=== PATIENT | female | born 1960 | race Caucasian/White ===

== ENCOUNTER → 2021-03-16 00:21 | Outpatient (CLI) | payer BC, SELFPAY ==
[2021-03-16 18:40] LABS: SARS-CoV-2 RNA PCR Negative
== END ==
PROVIDERS: PCP Family Medicine; Visit Provider Orthopaedic Surgery
DX: Z01.812 Encounter for preprocedural laboratory examination (principal); Z20.822 Contact with and (suspected) exposure to COVID-19
CPT/HCPCS: C9803; U0003; U0005

== ENCOUNTER 2021-03-19 01:36 | Day surgery (SDC) | payer BC, SELFPAY ==
[2021-03-11 16:16] VITALS: BMI 27.8
[2021-03-19] VITALS (12 sets, daily range): BP systolic 114–164; BP diastolic 74–92; PULSE 61–72; RESP 12–16; TEMP 36.5–36.9; O2SAT 94–100
--- NOTE | 2021-03-19 07:39 | WPDANESEPPF ---
Anes - Initial Pre Proc Eval Procedure: Operation Date: 03/19/21 10:30 Proposed Procedures p Right Arthroscopic Rotator Cuff Repair, with Biceps Tenodesis, Subacromial Decompression - Sundeep Montano MD Date/Time: 03/19/21 07:39 Surgeon: Sundeep Montano MD Pre Op Diagnosis: right complete rotator cuff tear Patient Data Age: 60 Gender: F Height: 1.68 m Weight: 78.2 kg Allergies Allergy/AdvReac Type Severity Reaction Status Date / Time PINK EYE MEDICATION Allergy Severe Swelling Uncoded 03/19/21 09:15 Home Medications Medication Instructions Recorded Confirmed Type cyclobenzaprine 10 mg tablet 10 mg PO HS 01/15/21 03/11/21 History folic acid 1 mg tablet 1 mg PO DAILY 01/15/21 03/11/21 History levothyroxine 50 mcg capsule 50 mcg PO DAILY 01/15/21 03/11/21 History methotrexate sodium 2.5 mg tablet 2.5 mg PO WEEKLY 01/15/21 03/11/21 History ibuprofen 200 mg PO Q6H PRN 03/11/21 03/11/21 History naproxen 250 mg PO QAM 03/11/21 03/11/21 History rosuvastatin 10 mg PO HS 03/11/21 03/11/21 History Patient hx anesthesia problems: none Family hx anesthesia problems: none [facility] Past Medical History Medical History (Updated 03/19/21 @ 09:02 by Moise Monroe DO) Aftercare following surgery Hypercholesterolemia Hypothyroidism Palpitations Surgical History Surgical History History of carpal tunnel release History of cholecystectomy History of foot surgery History of knee replacement Family History Family History Grandparent Hypertension Grandparent CHF (congestive heart failure) Other Family history of malignant neoplasm of breast in first degree relative Social History Social History Smoking status: Never smoker Alcohol intake: never Living arrangements: with family Spiritual care concerns: No Anes - Eval Final PreProcedure Day of Procedure 03/19/21 07:39 Patient weight: overweight Heart: regular rate and rhythm Lungs: clear to auscultation and normal air movement Airway: Mallampati scale class II Neurological: alert and oriented Last oral intake: >/= 8 hours ASA classification: II Emergent: no Anesthetic plan: proceed Anesthesia type and monitoring: general ETT and standard monitoring Informed Consent: The patient's anesthetic plan and its attendant risks and benefits were discussed with the patient/family/POA. Questions were solicited and answers provided to the satisfaction of the patient/family/POA.
--- NOTE | 2021-03-19 07:42 | WPDANESPNB ---
Anes - Peripheral Nerve Block Date/Time: 03/19/21 07:42 I have discussed with the patient/family/POA the placement of a peripheral nerve block for post-operative pain management, including associated risks, benefits, complications, and side effects. Alternative methods of post-operative analgesia were detailed. Questions were solicited and answers provided to the satisfaction of the patient/family/POA. Time-Out: A pre-procedural Time-Out was completed immediately before starting the procedure and confirmed: Patient Identification, Site, Procedure, Patient Position and the Availability of Requisite Equipment. Clinical Indications: Acute post-operative pain management requested by the operative surgeon. Nerve Block Insertion Note Anes-nerve block: interscalene right Patient position: supine Skin prep: chlorhexidine Needle: 22 gauge, stimulating, insulated echogenic needle. Needle length: 50 mm Technique: ultrasound Injectate: bupivacaine 0.5% with epi 5 mcg/ml (30cc- no epi) Observations: tolerated well Complications: none Procedure start time:: 954 Procedure end time:: 957
[2021-03-19] MEDS: ACETAMINOPHEN 500 MG TABLET 1000 MG PO (09:26)
[2021-03-19] MEDS: LACTATED RINGERS 1,000 ML 30 ML IV CONT ×2 (09:38→13:47)
[2021-03-19] MEDS: KETOROLAC 15 MG/ML VIAL (*BKC) IV PUSH (09:40)
--- NOTE | 2021-03-19 10:06 | WPDHPUPDATE1 ---
History and Physical Update Update Date/Time: 03/19/21 10:06 History and Physical has been reviewed, including an updated exam of the patient. There are NO changes in the patient's condition. Risks, benefits, and alternatives have been discussed and questions answered. Patient agrees to proceed with procedure.
--- NOTE | 2021-03-19 10:07 | PM.HPGS ---
History of Present Illness History of Present Illness Consent: Risks, benefits, and alternatives have been discussed and questions answered. Patient agrees to proceed with procedure. Chief complaint: right complete rotator cuff tear Narrative: Debra Mohan is a 60 year old female who presents with several years history of right shoulder pain. Radiates down arm. No injury. Has tried NSAIDs (some relief). Aggravated by picking up objects with arm extended. Persistent severe pain in the anterior area and deltoid. Worse with shoveling type moves and reaching. Unable to reach behind her back without severe pain. 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 Review of systems: Unremarkable EXAM The shoulder shows no deformity. Painful active range of motion. No instability. Positive Neer / Armando impingement test. Rotator cuff tests positive: painful arc, supraspinatus test. Additional tests: Belly press normal, Speeds test positive, Cross-arm negative. Tender at the anterolateral subacromial bursa. Range of motion: Flexion 160, external rotation 60, internal rotation L2. Strength R/L: Deltoid 0/0, supraspinatus 3/5, external rotation 3/5, belly press 0/0. Neurovascular status intact, radial pulse palpable and symmetric, light touch sensation intact. No edema, no skin rash or lesions. The contralateral shoulder shows no deformity. No tenderness. No crepitus. Full active range of motion. No instability. Normal rotator cuff strength. DIAGNOSTICS: Radiographs show type 2 acromion and AC djd. Outside MRI shows moderate size anterior rotator cuff tear with retraction. Also tearing and displacement of the long head of the biceps into the subscapularis which shows subtle tearing. Evidence of subacromial impingement noted. I reviewed the MRI images personally. [facility] Past Medical History Medical History Aftercare following surgery Hypercholesterolemia Hypothyroidism Palpitations Surgical History Surgical History History of carpal tunnel release History of cholecystectomy History of foot surgery History of knee replacement Family History Family History Grandparent Hypertension Grandparent CHF (congestive heart failure) Other Family history of malignant neoplasm of breast in first degree relative Social History Social History Smoking status: Never smoker Alcohol intake: never Living arrangements: with family Spiritual care concerns: No Meds Home Medications and Allergies Home Medications Medication Instructions Recorded Confirmed Type cyclobenzaprine 10 mg tablet 10 mg PO HS 01/15/21 03/19/21 History folic acid 1 mg tablet 1 mg PO DAILY 01/15/21 03/19/21 History levothyroxine 50 mcg capsule 50 mcg PO DAILY 01/15/21 03/19/21 History methotrexate sodium 2.5 mg tablet 2.5 mg PO WEEKLY 01/15/21 03/19/21 History ibuprofen 200 mg PO Q6H PRN 03/11/21 03/19/21 History naproxen 250 mg PO QAM 03/11/21 03/19/21 History rosuvastatin 10 mg PO HS 03/11/21 03/19/21 History ascorbic acid (vitamin C) [Vitamin 250 mg PO DAILY 03/19/21 03/19/21 History C] cholecalciferol (vitamin D3) 25 mcg PO DAILY 03/19/21 03/19/21 History [Vitamin D3] vitamin K2 40 mcg PO DAILY 03/19/21 03/19/21 History zinc 10 mg PO DAILY 03/19/21 03/19/21 History Allergies Allergy/AdvReac Type Severity Reaction Status Date / Time PINK EYE MEDICATION Allergy Severe Swelling Uncoded 03/19/21 09:15 Vital Signs Vital Signs - 24 hr 03/19/21 08:50 Temperature 36.9 C Pulse Rate 69 Respiratory Rate 16 Blood Pressure 164/92 H Pulse Oximetry 100 Assessment and Plan Assessment and plan (1) Complete tear of right rotator cuff:
[2021-03-19] MEDS: ceFAZolin 2 GM/D5W 50 ML 2 GM/50 ML BAG IVPB (10:15)
[2021-03-19] MEDS: ONDANSETRON INJ 4 MG/2 ML VIAL IV PUSH (15:09)
[2021-03-19] MEDS: diphenhydrAMINE HCl INJ 50 MG/ML VIAL 25 MG IV PUSH (15:51)
[2021-03-19] MEDS: SCOPOLAMINE 1.5 MG PATCH TRANSDERM (15:51)
--- NOTE | 2021-03-19 16:47 | P.OP_ITS ---
Procedure Note - Detailed Date of Procedure 03/19/21 Pre-op Diagnosis 1. Right rotator cuff tear 2. Biceps tendinosis 3. Subacromial impingement Post-op Diagnosis same Procedure Performed 1. Arthroscopic rotator cuff repair 2. Arthroscopic subacromial decompression 3. Arthroscopic biceps tenodesis Surgeon Sundeep Montano MD Auto Repair Technician Shelly Leonrad PA-C Anesthesia general and regional ( interscalene block) Findings Very large anterior superior tear including complete tear of the subscapularis and supraspinatus tear with mild retraction. Biceps was subluxed and partially ruptured. Double row repair of both the subscapularis and supraspinatus with 2 bone tunnels each was performed. Biceps tenodesis also through a bone tunnel suture. Description of Procedure Preoperative antibiotics were given. An interscalene block was administered in the preoperative area. The patient was bought brought to the operating room. A general anesthetic was administered. The patient was carefully positioned in the beach chair position. The head and neck were carefully positioned. The non operative extremity was also carefully positioned. The shoulder was prepped and draped in the usual sterile fashion. Examination was performed. Standard posterior and anterior arthroscopic portals were established. Inflow achieved with the arthroscopic pump using saline and epinephrine. The glenohumeral joint was carefully inspected. The glenohumeral cartilage was good. The biceps was significantly frayed and torn over greater than 50% of its tissue. It was released and tagged for later tenodesis. The subscapularis was inspected with the 70 degree arthroscope. Was clearly ruptured through the majority of the fibers. Tissue was good without significant retraction primarily scarred to the bursa. The comma sign was identified. The supraspinatus was also shown to be torn with moderate traction in a C-shaped type tear. Attention was turned to the subacromial space. A complete bursectomy was performed. The rotator cuff and footprint were lightly debrided. A modest acromioplasty was performed. The tear configuration was carefully assessed. At this point, 2 tunnels were created at the lesser tuberosity. The ArthroTunneler technique was utilized. Three sutures were passed through each tunnel. 5 sutures were then passed through the cuff tissue, and one through the biceps with a locking loop. The sutures were tied arthroscopically. Similarly 2 tunnels were created at the supraspinatus and tied with 6 simple sutures. Excellent repair without undue tension was created for the entire very large tear. The arthroscopic instruments were removed. The wounds were closed with 3-0 Monocryl subcuticular suture and steri strips. There were no complications. A sling was applied and the patient brought to the recovery room. Physician facilities assistant, Shelly Rodriguez PA-C, required for surgery; including patient positioning, draping, arthroscopic camera operation, maintaining instrument position, suture retrieval, wound closure, and dressing and sling placement. Estimated Blood Loss -20.0 Pathology none sent Complications No immediate complications Condition stable Disposition PACU
[2021-03-19] MEDS: diphenhydrAMINE HCl CAP 25 MG CAPSULE PO (16:57)
== END 2021-03-19 17:35 | disposition home or self-care (01) ==
PROVIDERS: PCP Family Medicine; Visit Provider Orthopaedic Surgery
PROC: (CPT 29805; principal; 2021-03-19 10:30)
DX: M75.121 Complete rotator cuff tear or rupture of right shoulder, not specified as traumatic (principal); G89.18 Other acute postprocedural pain; E78.00 Pure hypercholesterolemia, unspecified; E03.9 Hypothyroidism, unspecified
CPT/HCPCS: 29827; 29828; 29826; 64415; A4565; A9270; J0330; J0690; J1100; J1200; J1885; J2250; J2270; J2370; J2405; J2704; J7120

== ENCOUNTER 2022-11-23 11:51 | Outpatient (CLI) | payer OTHER, SELFPAY ==
--- NOTE | 2022-11-23 12:52 | ECG_ITS ---
Measurements Intervals Point Comfort Rate: 62 P: 43 VT: 208 QRS: -2 QRSD: 90 T: 10 QT: 455 QTc: 466 Interpretive Statements SINUS RHYTHM DELAYED PRECORDIAL R/S TRANSITION BASELINE ARTIFACT- I, II, III BORDERLINE ECG NO PREVIOUS ECG AVAILABLE FOR COMPARISON Electronically Signed On 11-23-2022 13:24:32 CDT by Ranjith Hernandez D.O.
[2022-11-23 13:21] LABS: Basophils Absolute Auto 0.1 K/mm3 (0.0-0.1); Basophils Percent Auto 0.7 % (0.2-1.2); Eosinophils Absolute Auto 0.1 K/mm3 (0-0.3); Eosinophils Percent Auto 1.9 % (0-4.4); Hematocrit 42.6 % (37.0-47.0); Hemoglobin 14.2 g/dL (12.0-15.0); Immature Granulocyte Absolute 0.02 K/mm3 (0.00-0.031); Immature Granulocyte Percent A 0.3 % (0-0.5); Lymphocytes Absolute Auto 1.73 K/mm3 (0.9-3.2); Lymphocytes Percent Auto 25.6 % (18.3-44.2); Mean Corpuscular HGB Conc 33.3 g/dl (32-36); Mean Corpuscular Hemoglobin 32.1 pg (26-34); Mean Corpuscular Volume 96.2 fl (80-100); Mean Platelet Volume 9.2 fl (7.4-10.4); Monocytes Absolute Auto 0.9 K/mm3 (0.1-0.6); Monocytes Percent Auto 13.1 % (2.6-8.5); Neutrophils Percent Auto 58.4 % (45.5-73.1); Platelet Count Result 235 k/mm3 (150-375); Red Blood Count 4.43 M/mm3 (4.2-5.4); Red Cell Distribution Width 12.7 % (11.5-14.5); White Blood Count 6.8 K/mm3 (4.5-10.0)
[2022-11-23 13:30] LABS: Albumin Level 4.1 g/dL (3.5-5.1); Estimated Glomerular Filt Rate > 60; Glucose 79 mg/dL (65-110)
[2022-11-23 13:40] LABS: Urine Cotinine NEGATIVE
[2022-11-24 01:05] LABS: Hemoglobin A1C 4.9 % (<5.7)
== END 2022-11-23 11:52 | disposition home or self-care (01) ==
LOC: ANHSURGERY 11:57
PROVIDERS: PCP Family Medicine; Visit Provider Orthopaedic Surgery
DX: M17.11 Unilateral primary osteoarthritis, right knee (principal); Z01.818 Encounter for other preprocedural examination; R94.31 Abnormal electrocardiogram [ECG] [EKG]
CPT/HCPCS: 80307; 82040; 82565; 82947; 83036; 85025; 86850; 86900; 86901; 87081; 93005

== ENCOUNTER 2022-12-03 01:51 | Day surgery (SDC) | payer OTHER, SELFPAY ==
--- NOTE | 2022-11-23 11:57 | PC.NURSE ---
Addendum entered by Radha Stanley RN 11/23/22 12:38: PT INFORMED ALSO TO STOP JOINT SUPPORT 3 DAYS PRIOR TO SURGERY - UNDERSTANDING VOICED Original Note: Report to the Outpatient Waiting Room, entrance under the green pavilion located off [facility], at time _0600_ on date _12/03/22_. Planned Procedure Time: _0730_. PACK A SMALL OVERNIGHT BAG AND LEAVE IN THE CAR ALONG WITH YOUR WALKER Time changes happen often and if your time is changed the preop area will call you the afternoon before. - You and your visitor will be asked to self-screen and do not enter if you have any COVID symptoms. - A mask is optional within the hospital at this time. -VISITING HOURS 8AM-8PM Patients may have clear liquids (water, carbonated beverages, clear teas, apple juice) until 3 hours prior to surgery (0430 AM) with a maximum of 20 ounces. - No food from midnight until time of surgery Take the following medications with a SIP of water the morning of surgery: _LEVOTHYROXINE, & TYLENOL IF NEEDED_ DO NOT STOP ANY OF YOUR OTHER PRESCRIPTION MEDICATIONS PRIOR TO SURGERY ?EXCEPT THE FOLLOWING Medications to discontinue _ASPIRIN 5 DAYS PRIOR TO SURGERY, Date to take last dose 11/27/22 - DICLOFENAC, IBUPROFEN, PER DR. JACKSON'S INSTRUCTIONS_ Medications to discontinue per ANESTHESIA - _TURMERIC 3 DAYS PRIOR TO SURGERY, Date to take last dose 11/29/22_ Please no make-up, nail monegasque, hairspray, perfume, deodorant, or body powder the day of surgery. No jewelry (including any body piercings) or valuables the day of surgery, leave them at home. Please take a shower or bath the night before, or the morning of, surgery with an antibacterial soap. Wear comfortable, loose fitting clothing. - Jewelry must be removed prior to entering the operating room. Rings and piercings that are not removed may be cut off. - The hospital will not accept responsibility for valuables. - Please leave all valuables, including medications, at home the day of surgery. If you are going home after surgery, a licensed driver trainer must drive you home. - NO public transportation without another adult if you receive anesthesia. - We recommend that an adult stay with you for 24 hours following discharge. - We also recommend that you do not drive, make important decision, drink alcoholic beverages, or take any drugs that were not prescribed by your health care provider for at least 24 hours after your discharge time. Follow any additional instructions given to you from your surgeon. If you or anyone in your household have experienced Covid symptoms in the past week, please notify your surgeon or the nurse liaison at the phone number below for possible testing. Telephone instructions given to _PATIENT_and asked if any additional questions and then verbalized understanding. Patient advised to call surgeon office or pre surgery nurse liaison [phone] if any additional questions.
[2022-11-23 12:22] VITALS: BP 158/94; PULSE 62; RESP 18; TEMP 37.1; O2SAT 100; BMI 27.7
--- NOTE | 2022-11-26 14:34 | PM.IMHP ---
H&P: HPI History of Present Illness Date/Time: 11/26/22 14:34 Chief Complaint: The patient is a 62-year-old female who sees Dr. Kilgore regarding her right knee. The patient has a chronic ongoing history of pain localized to right knee this is due to advanced primary osteoarthritis. She has aching pain worse with activity somewhat relieved by rest has trouble squatting kneeling going up and down stairs and cannot stand or walk for long periods. She has aching pain that limits her daily activities despite conservative measures including cortisone therapy and anti-inflammatories symptoms continue. X-rays at this time show advanced primary osteoarthritis of the right knee joint. The patient has discussed risks benefits limitations alternative surgery in great detail Dr. Kilgore she would now like to proceed with a right total knee arthroplasty. Review of Systems Review of Systems: Ten point review of systems otherwise negative [facility] Past Medical History Medical History Aftercare following surgery Hypercholesterolemia Hypothyroidism Palpitations Surgical History Surgical History History of carpal tunnel release History of cholecystectomy History of foot surgery History of knee replacement Family History Family History Grandparent Hypertension Grandparent CHF (congestive heart failure) Other Family history of malignant neoplasm of breast in first degree relative Social History Social History Smoking status: Never smoker Second hand tobacco smoke exposure: No Additional smoking assessment comments: PT DENIES ALL FORMS OF TOBACCO USE Alcohol intake: current Drinks per week: 1 Substance use: never Substance use type: does not use Living arrangements: with family Spiritual care concerns: No Meds Home Medications and Allergies Home Medications Medication Instructions Recorded Confirmed Type levothyroxine 50 mcg capsule 50 mcg PO DAILY 01/15/21 11/23/22 History ibuprofen 200 mg tablet 200 mg PO Q6H PRN Pain 03/11/21 11/23/22 History rosuvastatin 10 mg tablet 10 mg PO HS 03/11/21 11/23/22 History ascorbic acid (vitamin C) 250 mg 250 mg PO DAILY 03/19/21 11/23/22 History tablet (Vitamin C) zinc 10 mg tablet 10 mg PO DAILY 03/19/21 11/23/22 History acetaminophen 650 mg 650 mg PO Q12H PRN Pain 11/23/22 11/23/22 History tablet,extended release (Tylenol 8 Hour) aspirin 81 mg capsule 81 mg PO DAILY 11/23/22 11/23/22 History diclofenac sodium 75 mg 75 mg PO BID 11/23/22 11/23/22 History tablet,delayed release glucosamine 500 mg-msm 100 mg-vit 1 cap PO 11/23/22 History C 20 vi-qhrrd-jghj-primrose capsule (Joint Support Complex) turmeric-turmeric root extract 1 tab-cap DAILY 11/23/22 11/23/22 History Allergies Allergy/AdvReac Type Severity Reaction Status Date / Time PINK EYE MEDICATION Allergy Severe Swelling Uncoded 11/23/22 12:13 Exam Narrative: on exam the patient is noted be 5 ft 6 in tall 170 lb with a BMI 27.4 well-developed well-nourished female no acute distress alert oriented x3. Normal mood and affect. Hearing and vision are intact. Respiratory is good no distress. Pulse regular rate rhythm. Abdomen benign. Extremities show the patient's right knee to be painful with manipulation and range of motion she has tenderness on the medial joint line more than laterally with crepitation through the arc of motion positive patellofemoral compression test. Aching pain through the arc of motion mild effusion. Knee joint is otherwise stable strength is 5 5 walks with a limp because of right knee pain neurovascularly she is intact skin is intact central nervous system within normal limits. X-rays show advanced primary osteoarthritis right knee joint.
[2022-12-03] VITALS (16 sets, daily range): BP systolic 113–155; BP diastolic 61–76; PULSE 51–70; RESP 12–20; TEMP 36.1–36.9; O2SAT 94–100; BMI 28.8
--- NOTE | ~2022-12-03 | XR_ITS ---
Right Knee Technique: Portable AP and crosstable lateral views Clinical History: Status post TKR Findings: Patient is status post total knee replacement. Orthopedic hardware alignment appears anatom ic. No hardware complication is evident. Subcutaneous emphysema and swelling is likely postoperative in nature. No acute osseous fracture is seen. Impression: Status post total knee replacement, without evidence of hardware complication. Reviewed, dictated and finalized at location . Impression: Status post total knee replacement, without evidence of hardware complication.
[2022-12-03] MEDS: ACETAMINOPHEN 500 MG TABLET 1000 MG PO (06:30)
[2022-12-03] MEDS: VANCOMYCIN 1,000 MG/NS 250 ML BAG 250 MG IVPB (06:40)
--- NOTE | 2022-12-03 06:43 | WPDHPUPDATE1 ---
History and Physical Update Update Date/Time: 12/03/22 06:43 History and Physical has been reviewed, including an updated exam of the patient. There are NO changes in the patient's condition. Risks, benefits, and alternatives have been discussed and questions answered. Patient agrees to proceed with procedure.
[2022-12-03] MEDS: TRANEXAMIC ACID 1,000MG/ISO100 1,000 MG/100 ML BAG 200 MG IVPB (07:09)
--- NOTE | 2022-12-03 07:12 | WPDANESEPPF ---
Anes - Initial Pre Proc Eval Procedure: Operation Date: 12/03/22 07:30 Proposed Procedures p Right Total Knee Arthroplasty - Casey Kilgore MD Date/Time: 12/03/22 07:12 Surgeon: Casey Kilgore MD Pre Op Diagnosis: O A Right Knee Patient Data Age: 62 Gender: F Height: 1.64 m Weight: 73.5 kg Last Vital Signs Temp 36.5 C 12/03/22 06:45 Pulse 61 12/03/22 06:45 Resp 16 12/03/22 06:45 BP 155/76 H 12/03/22 06:45 Pulse Ox 100 12/03/22 06:45 O2 Del Method Room Air 12/03/22 06:45 Allergies Allergy/AdvReac Type Severity Reaction Status Date / Time PINK EYE MEDICATION Allergy Severe Swelling Uncoded 12/03/22 06:15 Home Medications Medication Instructions Recorded Confirmed Type levothyroxine 50 mcg capsule 50 mcg PO DAILY 01/15/21 12/03/22 History ibuprofen 200 mg tablet 200 mg PO Q6H PRN Pain 03/11/21 12/03/22 History rosuvastatin 10 mg tablet 10 mg PO HS 03/11/21 12/03/22 History ascorbic acid (vitamin C) 250 mg 250 mg PO DAILY 03/19/21 12/03/22 History tablet (Vitamin C) zinc 10 mg tablet 10 mg PO DAILY 03/19/21 12/03/22 History acetaminophen 650 mg 650 mg PO Q12H PRN Pain 11/23/22 12/03/22 History tablet,extended release (Tylenol 8 Hour) aspirin 81 mg capsule 81 mg PO DAILY 11/23/22 12/03/22 History diclofenac sodium 75 mg 75 mg PO BID 11/23/22 11/23/22 History tablet,delayed release glucosamine 500 mg-msm 100 mg-vit 1 cap PO 11/23/22 History C 20 ir-lzwjz-uvry-primrose capsule (Joint Support Complex) turmeric-turmeric root extract 1 tab-cap DAILY 11/23/22 12/03/22 History Patient hx anesthesia problems: none Family hx anesthesia problems: none Results Review: All pre-operative results and documents have been reviewed as part of the pre-operative evaluation. [facility] Past Medical History Medical History Aftercare following surgery Hypercholesterolemia Hypothyroidism Palpitations Surgical History Surgical History History of carpal tunnel release History of cholecystectomy History of foot surgery History of knee replacement Family History Family History Grandparent Hypertension Grandparent CHF (congestive heart failure) Other Family history of malignant neoplasm of breast in first degree relative Social History Social History Smoking status: Never smoker Second hand tobacco smoke exposure: No Additional smoking assessment comments: PT DENIES ALL FORMS OF TOBACCO USE Alcohol intake: current Drinks per week: 1 Substance use: never Substance use type: does not use Living arrangements: with family Spiritual care concerns: No Anes - Eval Final PreProcedure Day of Procedure 12/03/22 07:12 Patient weight: overweight Heart: regular rate and rhythm Lungs: clear to auscultation Airway: Mallampati scale class II Neurological: alert and oriented Last oral intake: >/= 8 hours ASA classification: III Emergent: no Anesthetic plan: proceed Anesthesia type and monitoring: general LMA and standard monitoring Results Review: All pre-operative results and documents have been reviewed as part of the pre-operative evaluation. Informed Consent: The patient's anesthetic plan and its attendant risks and benefits were discussed with the patient/family/POA. Questions were solicited and answers provided to the satisfaction of the patient/family/POA.
[2022-12-03] MEDS: LACTATED RINGERS 1,000 ML 30 ML IV CONT ×2 (07:15→10:03)
[2022-12-03] MEDS: SCOPOLAMINE 1.5 MG PATCH TRANSDERM (07:16)
--- NOTE | 2022-12-03 07:27 | WPDANESPNB ---
Anes - Peripheral Nerve Block Date/Time: 12/03/22 07:27 I have discussed with the patient/family/POA the placement of a peripheral nerve block for post-operative pain management, including associated risks, benefits, complications, and side effects. Alternative methods of post-operative analgesia were detailed. Questions were solicited and answers provided to the satisfaction of the patient/family/POA. Time-Out: A pre-procedural Time-Out was completed immediately before starting the procedure and confirmed: Patient Identification, Site, Procedure, Patient Position and the Availability of Requisite Equipment. Clinical Indications: Acute post-operative pain management requested by the operative surgeon. Nerve Block Insertion Note Anes-nerve block: adductor canal right Patient position: supine Skin prep: chlorhexidine Needle: 22 gauge, stimulating, insulated echogenic needle. Needle length: 80 mm Technique: ultrasound Technique comment: mid 2mg [id number] Injectate: bupivacaine 0.5% with epi 5 mcg/ml (30ml no epi) and dexamethasone (mg) (4) Observations: tolerated well Complications: none Procedure start time:: 714 Procedure end time:: 721
[2022-12-03] MEDS: ceFAZolin 2 GM/D5W 50 ML 2 GM/50 ML BAG IVPB (07:29)
[2022-12-03] MEDS: GENTAMICIN BONE CEMENT REFOBACIN 1 EACH TOPICAL (08:41)
--- NOTE | 2022-12-03 08:56 | P.OP_ITS ---
Procedure Note - Detailed Date of Procedure 12/03/22 Pre-op Diagnosis O A Right Knee Post-op Diagnosis Same Procedure Performed RIGHT total knee arthroplasty Surgeon Casey Kilgore MD Mental Health Aides Teacher Jovan Otoole Anesthesia General Description of Procedure The patient was brought to the operating room #7. General anesthetic was administered. Placed on the operating table and sterilely prepped and draped in usual manner. A longitudinal incision was made. Tourniquet inflated to 300 mmHg for a total of 48 minutes. Dissection carried down to the fascia. Medial parapatellar incision was made and the patella subluxated laterally. Patella cut from 23 to 15 mm and sized for a 34 mm button. The tibia cut perpendicular to the long axis and femur cut in 5 degrees of valgus, a 62.5 femur trialed. 67 tibia was felt to fit the best. The soft tissue balanced, hemostasis obtained. All [address], 67 tibia, 62.5 femur, 34 mm patella, and 12S mm poly. Motion was 0-125 degrees with good stablility and flexion and extension. The wound was closed with #2 vicryl, 2-0 Vicryl and cary. Estimated Blood Loss 200 Drains No Packing No Pathology None sent Complications No immediate complications Condition Stable Disposition PACU
[2022-12-03] MEDS: fentaNYL CITRATE INJ (*CRX) 100 MCG/2 ML VIAL 25 MCG IV PUSH ×8 (09:51→10:34)
--- NOTE | 2022-12-03 09:57 | P.OPB_ITS ---
Procedure Note - Brief Procedure Note - Brief Date of procedure: 12/03/22 preop Diagnosis- advanced primary O A Right Knee postop diagnosis same status post right total knee arthroplasty Procedure performed: right total knee arthroplasty Surgeon: surgeon- Casey Kilgore MD 1st assistant administrator-DEANNA Stone Description of procedure: patient was taken the operating room on December 03, 2022 the preop diagnosis of severe primary osteoarthritis right knee joint. I entered the room at 7:35 a.m. at that point I assisted with positioning the patient on the operating table, placed a tourniquet on the upper thigh that was well padded then assisted with sterile prep and drape of the patient's right lower extremity. Dr. Kilgore then entered the room commence with right total knee arthroplasty. Throughout the procedure I assisted with positioning of the leg, wound retraction, hemostasis with suction cautery, placement of the total knee components and exce ss cement removal. Once Dr. Kilgore completed his portion of the procedure I then did a thorough irrigation of the wound deep and superficial layers, also made sure hemostasis was obtained with cauterization, and I placed Surgicel powder throughout the wound. I then started closing the deep capsule of the right knee joint with 2. Vicryl, 2. Quill. I then irrigated the wound once again once the deep capsule was closed. I placed more Surgicel powder again checked for hemostasis with cauterization. I then closed the superficial skin layer with 2-0 Vicryl, 0 Quill, and surgical cary. Then placed a sterile dressing with Xeroform gauze 4 x 4 gauze soft roll gauze and a long Jose wrap from the toes to the thigh. Patient tolerated procedure well without intraoperative complications was ready for discharge to recovery room in stable condition. Total blood loss was approximately 150 cc. I then assisted with transfer the patient from the operating table to the stretcher for transport to recovery room. The patient was expected to spend the night be discharged tomorrow if in stable condition. I exited the room at 9:35 a.m..
[2022-12-03] MEDS: HYDROmorphone HCL INJ (*CRX) 1 MG/ML SYR 0.5 MG IV PUSH ×2 (10:38→10:47)
--- NOTE | 2022-12-03 11:39 | PC.NURSE ---
Patient Debra Mohan received from recovery at 1125. Report taken from Maci ARIAS.
[2022-12-03] MEDS: SENNA/DOCUSATE SODIUM TABLET 2 TAB PO ×2 (12:13→18:34)
[2022-12-03] MEDS: ASCORBIC ACID 250 MG TABLET PO (12:13)
[2022-12-03] MEDS: ASPIRIN 81 MG ENTERIC TABLET PO (12:13)
[2022-12-03] MEDS: SODIUM CHLORIDE 0.9% IV 1,000 ML 125 ML IV CONT (12:14)
[2022-12-03] MEDS: polyethylene glycoL 3350 17 GM POWD.PACK PO (12:14)
[2022-12-03] MEDS: HYDROcodone/acetaminophen (*CRX) 5-325 MG TABLET 1 TAB PO ×2 (12:24→20:41)
--- NOTE | 2022-12-03 16:25 | PCPTNOTE ---
On 12/03/22, the student, [Rosemary Montez], provided care and completed [facility] documentation on this patient. I have reviewed the student's documentation and agree with the findings.
[2022-12-03] MEDS: ceFAZolin 1 GM/NS 50 ML 1 GM/50 ML BAG IVPB ×2 (17:38→23:08)
--- NOTE | 2022-12-03 17:45 | PC.NURSE ---
Called pharmacy for missing 1700 medications; rsoy fonseca, and raymundo. Will give when received
[2022-12-03] MEDS: RIVAROXABAN 10 MG TABLET PO (18:32)
[2022-12-03] MEDS: CELECOXIB 200 MG CAPSULE PO (18:32)
[2022-12-04 00:08] VITALS: BP 115/60; PULSE 67; RESP 20; TEMP 36.4; O2SAT 98
[2022-12-04 03:08] VITALS: BP 118/58; PULSE 60; RESP 20; TEMP 36.3; O2SAT 99
[2022-12-04 03:11] VITALS: BP 118/58; PULSE 60; RESP 20; TEMP 36.3; O2SAT 99
[2022-12-04 05:49] LABS: Basophils Absolute Auto 0.1 K/mm3 (0.0-0.1); Basophils Percent Auto 0.3 % (0.2-1.2); Hematocrit 35.4 % (37.0-47.0); Hemoglobin 11.5 g/dL (12.0-15.0); Immature Granulocyte Absolute 0.11 K/mm3 (0.00-0.031); Immature Granulocyte Percent A 0.6 % (0-0.5); Lymphocytes Absolute Auto 1.28 K/mm3 (0.9-3.2); Lymphocytes Percent Auto 6.5 % (18.3-44.2); Mean Corpuscular HGB Conc 32.5 g/dl (32-36); Mean Corpuscular Hemoglobin 31.5 pg (26-34); Mean Platelet Volume 9.7 fl (7.4-10.4); Monocytes Percent Auto 10.2 % (2.6-8.5); Neutrophils Absolute Auto 16.2 K/mm3 (1.3-6.7); Neutrophils Percent Auto 82.4 % (45.5-73.1); Platelet Count Result 217 k/mm3 (150-375); Red Blood Count 3.65 M/mm3 (4.2-5.4); Red Cell Distribution Width 12.7 % (11.5-14.5); White Blood Count 19.7 K/mm3 (4.5-10.0)
[2022-12-04 05:59] LABS: Anion Gap -1 mmol/L (8-16); Blood Urea Nitrogen 14 mg/dL (7-17); Calcium 8.1 mg/dL (8.4-10.2); Carbon Dioxide 32 mmol/L (22-30); Chloride 104 mmol/L (98-107); Estimated CRCL calculation 91 ml/min; Estimated Glomerular Filt Rate > 60; Glucose 117 mg/dL (65-110); Sodium 135 mmol/L (137-145)
[2022-12-04 06:07] VITALS: O2SAT 99
[2022-12-04] MEDS: LEVOTHYROXINE SODIUM 50 MCG TABLET PO (06:28)
[2022-12-04] MEDS: HYDROcodone/acetaminophen (*CRX) 5-325 MG TABLET 1 TAB PO ×2 (06:35→11:51)
--- NOTE | 2022-12-04 07:18 | PM.IMCN ---
Assessment and Plan Assessment and plan (1) Hypercholesterolemia: Code(s): E78.00 - Pure hypercholesterolemia, unspecified Status: Acute Assessment and Plan: Continue rosuvastatin (2) Primary osteoarthritis of right knee: Code(s): M17.11 - Unilateral primary osteoarthritis, right knee Status: Acute Assessment and Plan: Postop day 1 Status post right knee replacement on 12/03/2022 Pain medications ordered Postop antibiotics given Ortho to manage postop care PT and OT Full weight-bearing status DVT prophylaxis Xarelto (3) Hypothyroidism: Qualifiers: Hypothyroidism type: unspecified Qualified Code(s): E03.9 - Hypothyroidism, unspecified Code(s): E03.9 - Hypothyroidism, unspecified Status: Acute Assessment and Plan: Continue levothyroxine (4) Leukocytosis: Qualifiers: Leukocytosis type: unspecified Qualified Code(s): D72.829 - Elevated white blood cell count, unspecified Code(s): D72.829 - Elevated white blood cell count, unspecified Status: Acute Assessment and Plan: WBCs elevated at 19.7 Most likely reactive to the surgical procedure No signs of infection including cough, urinary dysfunction, fevers Continue trend if patient does not discharge Plan Thank you for allowing us to participate on this case please call with any questions ? MEDICAL DECISION MAKING NARRATIVE ? History obtained from: Patient ? History from independent sources: None ? External chart review: Previous office visits ? New problems addressed: Leukocytosis ? Chronic illnesses addressed: Hyperlipidemia, hypothyroidism ? Independent interpretation of studies: Labs vital signs ? Comorbidities complicating care: None ? Diagnostic tests considered but not ordered: Chest x-ray blood cultures ? Risk of complication: Low ? Time spent on encounter: 52 minutes HPI Data of Consult Consult date: 12/04/22 Requesting Physician: Casey Kilgore MD Primary Care Provider: Chon JainMD Consult Narrative Reason for consult: Medical management Narrative: Debra Mohan is a 62 year old female with past medical history of hypothyroidism, hyperlipidemia who was a direct admit by Dr. Kilgore for a right total knee replacement. Patient has been dealing with pain and aching that has worsened for quite some time. She stated that she has been having troubles going up stairs and cannot stand or walk for long periods of times. She also stated that she has been limping around for a while as well. Preop knee x-ray did show osteoarthritis. Dr. Kilgore did a total knee replacement on 12/03/2022. She denies any current chest pain, shortness a breath, nausea, vomiting, diarrhea or constipation. Currently pain is a 5/10 however when she gets up move around to 7/10. She stated that she has been up to the chair and she has been walking back and forth to the bathroom. She denies any complaints with urination. She also denies any complaints of sweats, fevers, chills. She states that she feels fine and she denies any cough or any signs of infection. Right knee is slightly swollen but overall looks good. Currently she has an ice pack on her knee and her Jose wrap is dry clean and intact. White blood cell count is slightly elevated 19.7 most likely reactive to recent events. All other labs and vital signs remained stable at this time. Patient looks comfortable and can be discharged from the medical standpoint. Patient will just need to follow-up with her primary care provider for general follow-up. Review of Systems Review of Systems: All systems reviewed & are unremarkable except as noted in HPI and below [facility] Past Medical History Medical History (Updated 12/04/22 @ 07:28 by TERESO Cartagena) Aftercare following surgery Hypercholesterolemia Hypothyroidism Palpitations Surgical History Surgical History (Reviewed
--- NOTE | 2022-12-04 08:28 | WPDANESPN ---
Anes - Prog Note Post-Op Date/Time: 12/04/22 08:28 Cardiovascular status: normal Respiratory status: normal Airway patency: baseline Mental status: baseline Post-Op hydration status: normal Vital Signs: Last Vital Signs Temp 36.3 C L 12/04/22 03:11 Pulse 60 12/04/22 03:11 Resp 20 12/04/22 03:11 BP 118/58 L 12/04/22 03:11 Pulse Ox 99 12/04/22 06:07 O2 Del Method Room Air 12/04/22 06:07 O2 Flow Rate 6 12/03/22 10:05 Pain Score (VAS): 09/10 I/O: Intake & Output 12/03/22 12/04/22 12/04/22 23:59 07:59 15:59 Intake Total 770 390 Balance 770 390 Laboratory Tests 12/04/22 04:58 12/04/22 04:58 12/04/22 04:58 WBC 19.7 H RBC 3.65 L Hgb 11.5 L Hct 35.4 L MCV 97.0 MCH 31.5 MCHC 32.5 RDW 12.7 Plt Count 217 MPV 9.7 Immature Gran % (Auto) 0.6 H Neut % (Auto) 82.4 H Lymph % (Auto) 6.5 L [place] % (Auto) 10.2 H Eos % (Auto) 0.0 Baso % (Auto) 0.3 Lymph # (Auto) 1.28 [place]rien # (Auto) 2.0 H Eos # (Auto) 0.0 Baso # (Auto) 0.1 Abs Immat Gran (auto) 0.11 H Absolute Neuts (auto) 16.2 H Absolute Nucleated RBC 0.0 Nucleated RBC % 0.0 Sodium 135 L Potassium 4.0 Chloride 104 Carbon Dioxide 32 H Anion Gap -1 L BUN 14 Creatinine 0.60 L Estim Creat Clear Calc 91 Estimated GFR > 60 Glucose 117 H Calcium 8.1 L Post-procedural complaints: none Patient Feedback: Patient satisfied with anesthetic care.
[2022-12-04] MEDS: ceFAZolin 1 GM/NS 50 ML 1 GM/50 ML BAG IVPB (08:42)
[2022-12-04] MEDS: ACETAMINOPHEN 325 MG TABLET 650 MG PO (08:42)
[2022-12-04] MEDS: SENNA/DOCUSATE SODIUM TABLET 2 TAB PO (08:42)
[2022-12-04] MEDS: CELECOXIB 200 MG CAPSULE PO (08:42)
[2022-12-04] MEDS: polyethylene glycoL 3350 17 GM POWD.PACK PO (08:42)
[2022-12-04 09:03] VITALS: BP 116/64; PULSE 57; RESP 20; TEMP 37.1; O2SAT 95
[2022-12-04] MEDS: ASCORBIC ACID 250 MG TABLET PO (09:05)
[2022-12-04] MEDS: ASPIRIN 81 MG ENTERIC TABLET PO (09:05)
== END 2022-12-04 13:45 | disposition home or self-care (01) ==
LOC: ANHSURGERY 07:16 → ANH2MED 11:24
PROVIDERS: PCP Family Medicine; Visit Provider Orthopaedic Surgery
PROC: (CPT 27447; principal; 2022-12-03 07:30)
DX: M17.11 Unilateral primary osteoarthritis, right knee (principal); D72.829 Elevated white blood cell count, unspecified; G89.18 Other acute postprocedural pain; E78.00 Pure hypercholesterolemia, unspecified; E03.9 Hypothyroidism, unspecified; Z79.82 Long term (current) use of aspirin
CPT/HCPCS: 27447; 64447; 36415; 73560; 80048; 85025; 97110; 97116; 97161; 97165; 97530; A9270; C1713; C1776; J0171; J0690; J1100; J1170; J1885; J2250; J2270; J2370; J2405; J2704; J2795; J3010; J3370; J7030; J7120

== ENCOUNTER 2022-12-22 10:04 | Outpatient (CLI) | payer OTHER, SELFPAY ==
--- NOTE | ~2022-12-22 | US_ITS ---
EXAMINATION: US venous doppler LE RT DATE: 12/22/2022 10:38 INDICATION: Right lower limb pain and swelling TECHNIQUE: Grayscale ultrasound images without and with compression and Doppler ultrasound images of the right lower extremity veins were obtained. COMPARISON: None. FINDINGS: The visualized portions of right common femoral vein, profunda (deep) femoral vein, femoral vein, pop liteal vein, peroneal trunk, posterior tibial veins, peroneal veins, gastrocnemius vein and greater s aphenous vein outflow are patent. IMPRESSION: 1. No deep venous thrombosis in the right lower limb. Reviewed, dictated and finalized at location A.
== END 2022-12-22 10:05 | disposition home or self-care (01) ==
PROVIDERS: PCP Family Medicine; Visit Provider Orthopaedic Surgery
DX: R22.41 Localized swelling, mass and lump, right lower limb (principal)
CPT/HCPCS: 93971

== ENCOUNTER 2023-05-16 07:39 | Outpatient (CLI) | payer OTHER, SELFPAY ==
--- NOTE | ~2023-05-16 | MR_ITS ---
MRI of the left shoulder Technique: Axial proton-density fat-sat images, coronal proton density fat-sat and T2 fat-sat images, and sagittal T1-weighted and T2 fat-sat images were acquired. Clinical History: Pain Findings: There is moderate AC joint degenerative change. Coracoclavicular, coracoacromial, and corac ohumeral ligaments are intact. There is 6 x 11 mm area of full-thickness tearing at the distal, anterior supraspinatus tendon insert ion. There is moderate background supraspinatus and infraspinatus tendinosis. No partial or full-thic kness tear of the infraspinatus tendon seen. Subscapularis tendon demonstrates severe tendinosis. The re is interstitial tearing of the distal tendon, with medial dislocation of the biceps tendon from th e bicipital groove into the substance of the subscapularis tendon. No labral tear identified. Inferior glenohumeral ligament is intact. No degenerative change or effusion of the glenohumeral join t. There is minimal fluid in the subacromial/subdeltoid bursa. No muscle atrophy or edema evident. Impression: 6 x 11 mm area of full-thickness tearing at the distal, anterior supraspinatus tendon insertion. Interstitial tearing of the distal subscapularis tendon, with medial dislocation of the biceps tendon from the bicipital groove, which appears to be dislocated into the substance of the subscapularis te ndon within the interstitial tear. Extensive rotator cuff tendinosis. Moderate AC joint degenerative change. Reviewed, dictated and finalized at location . AVEMENT PROGRAM COORDINATOR Impression: 6 x 11 mm area of full-thickness tearing at the distal, anterior supraspinatus tendon insertion. Interstitial tearing of the distal subscapularis tendon, with medial dislocatio n of the biceps tendon from the bicipital groove, which appears to be dislocate d into the substance of the subscapularis tendon within the interstitial tear. Extensive rotator cuff tendinosis. Moderate AC joint degenerative change.
--- NOTE | ~2023-05-16 | MR_ITS ---
EXAMINATION: MR shoulder RT w con DATE: 05/16/2023 10:00 INDICATION: Left shoulder pain TECHNIQUE: Magnetic resonance imaging (MRI) of the right shoulder was performed following intra-garo cular gadolinium contrast injection and without intravenous contrast. Details of the glenohumeral taylor nt injection have been dictated separately. Sequences included axial T2-weighted FS FSE, axial T1-we ighted FS FSE, coronal oblique T1-weighted FS FSE, coronal oblique T2-weighted FSE, sagittal T2-weigh layla FS FSE, sagittal T1-weighted FSE, and ABER (abduction external rotation) T1-weighted FS FSE. COMPARISON: None. FINDINGS: Coracoacromial arch: The acromion undersurface is curved in morphology (type II). The coracoacromial ligament is normal. Moderate acromioclavicular osteoarthritis with cephalad directed small marginal osteophytes and a sma ll heterotopic ossicle along the thickened dorsal capsule. Rotator cuff: Moderate supraspinatus and moderate infraspinatus tendinopathy. Suture anchors along the greater tube rosity consistent with prior supraspinatus and infraspinatus rotator cuff repair. There 3 separate fu ll/near full-thickness longitudinal split tears in the distal supraspinatus and conjoined portion of the supraspinatus and infraspinatus tendons, each measuring approximately 1 cm medial to lateral walt th and <2 mm maximal thickness. The teres minor tendon is normal. Mild subscapularis tendinopathy wit h suture anchor for subscapularis tendon repair at the cephalad aspect of the lesser tuberosity footp late. The cephalad portion of the tendon extending to the suture anchor appears to remain intact as d oes the cephalad third of the tendon. There is a residual/recurrent partial tear involving the full m edial to lateral width of the intervening central third of the lesser tuberosity footplate. The more superficial bursal side of the tendon remains intact and contiguous with the intact transverse maurilio l ligament. The region of the tear measures approximately 1 cm craniocaudally with the tear margin re tracted approximately 2 cm medially from the lesser tuberosity footplate. Normal rotator cuff muscle bulk and signal. Biceps tendon, glenoid labrum and glenohumeral cartilage: There is moderate tendinopathy and longitudinal split tearing of the extra articular portion long hea d biceps tendon which extends to a suture anchor at the caudal aspect of the intertubercular groove c onsistent with prior bicipital tenodesis. The long head biceps tendon anchor has been debrided from t he superior glenoid some residual amorphous increased signal consistent with degeneration of the supe rior glenoid labrum which extends to the posterosuperior labrum with irregular frayed appearing free edge. Small marginal osteophytes along the posterior glenoid extending to the posterior labrum where there is minimal residual labral tissue. Small region of full/near full-thickness chondral fissuring at the posterior superior aspect of the humeral head. There is shallow chondral ulceration and deeper chondral fissuring at the glenoid most prominent at the central to inferior glenoid. There are coupl e tiny foci of cystlike change along the posterior inferior rim of the glenoid. Bones and other: Bone alignment is normal. No fracture or pathologic marrow replacing process. Likely reactive moderat e sized glenohumeral joint effusion. Moderate amount of fluid in the subacromial/subdeltoid bursa con sistent which could be due to either bursitis or more likely decompression of fluid from the glenohum eral joint space into the bursa through the full-thickness rotator cuff split tears. IMPRESSION: 1. Mild to moderate rotator cuff tendinopathy with postoperative change of prior rotator cuff repair with suture anchors at the lesser and greater tuberosity footplate of the subscapularis, supraspinatu s and conjoined supraspinatus and infraspinatus tendons. Small resi
--- NOTE | ~2023-05-16 | XR_ITS ---
EXAMINATION: XR fl inj shoulder RT - MR/CT DATE: 05/16/2023 09:39 INDICATION: Right shoulder pain and weakness. Prior rotator cuff repair. TECHNIQUE: A time-out was performed to verify the patient's name, date of , and procedure to b e performed. The procedure including the risks, benefits, and alternatives was discussed with the pat ient. Risks discussed included bleeding and infection. The patient understood the risks and agreed to proceed. The skin overlying the right glenohumeral joint was prepped and draped in usual sterile fas hion. Anesthetic was administered with 1% lidocaine subcutaneously. A 22 G needle was advanced unde r fluoroscopic guidance into the joint. Subsequently, injectate consisting of 12 mL of 1:200 Multiha nce, 1:4 1% lidocaine, and 1:4 Omnipaque 240 was instilled. The needle was removed and the entry sit e was cleaned and dressed. There were no immediate complications. Fluoroscopy exposure time was 0.1 minutes. The total number of images was 2. FINDINGS: Real-time fluoroscopy demonstrates the needle and contrast in the right glenohumeral joint. IMPRESSION: 1. Successful right glenohumeral joint injection of contrast for subsequent MR arthrography. Reviewed, dictated and finalized at location A. MAKER MACHINE
== END 2023-05-16 07:40 | disposition home or self-care (01) ==
LOC: ANHIMG 07:41
PROVIDERS: PCP Family Medicine; Visit Provider Orthopaedic Surgery
DX: M19.011 Primary osteoarthritis, right shoulder (principal); M19.012 Primary osteoarthritis, left shoulder
CPT/HCPCS: 23350; 73221; 73222; 77002; A9577; Q9966